=== PATIENT | male | born 1955 | race Caucasian/White ===

== ENCOUNTER 2019-09-13 12:02 | Emergency (ER) | payer OTHER, MEDICAID ==
[~2019-09-13] VITALS: Ht 172.7 cm; Wt 67.6 kg
[2019-09-13 12:02] VITALS: BP_SYST 130
--- NOTE | 2019-09-13 12:10 | NUR ---
BROUGHT IN BY [facility] AND PLACED IN BED #3, TRIAGED, REPORT GIVEN TO SARAH
--- NOTE | 2019-09-13 12:20 | NUR ---
Pt came to ER after fall out of w/c yesterday afternoon. He c/o nose pain and L knee pain. Possible fx in nose, pt stated he was told by Dr to go into ER for evaluation.
--- NOTE | 2019-09-13 12:30 | NUR ---
ER at bedside examining patient.
--- NOTE | 2019-09-13 12:40 | NUR ---
TAKEN TO RADIOLOGY FOR TESTING
--- NOTE | 2019-09-13 12:50 | NUR ---
RETURNED FROM RADIOLOGY, PLACED BACK TO BED #3
--- NOTE | 2019-09-13 13:36 | NUR ---
pt informed of discharge plan and ETA.
[2019-09-13 13:54] VITALS: BP_SYST 108
--- NOTE | 2019-09-13 13:55 | NUR ---
Patient given written and verbal discharge instructions and verbalizes understanding. ER MD discussed with patient the results and treatment provided. Patient in stable condition. ID arm band removed. Patient educated on pain management and to follow up with PMD. Pain Scale 0. Opportunity for questions provided and answered. Medication side effect fact sheet provided.
== END 2019-09-13 13:55 | disposition home or self-care (01) ==
LOC: SED 12:02
DX: S02.2XXA Fracture of nasal bones, initial encounter for closed fracture (principal); Z88.0 Allergy status to penicillin; W18.39XA Other fall on same level, initial encounter; Y93.89 Activity, other specified; Y92.89 Other specified places as the place of occurrence of the external cause; Y99.8 Other external cause status
CPT/HCPCS: 70486-TC; 99284